=== PATIENT | male | born 1955 | race African-American/Black ===

== ENCOUNTER 2020-12-10 11:38 | Emergency (ER) | payer MEDICARE, OTHER ==
[~2020-12-10] VITALS: Ht 180.3 cm; Wt 68.0 kg
[~2020-12-10 11:38] MED LIST: AMLO10TA80 MT; FINA5TAB11 MT; FLUT1DIS3 IH; NAPR-681 MT; TERA10CA4 MT
[2020-12-10 11:47] VITALS: BP 148/131
[2020-12-10 14:35] LABS: BASOPHILS % 0.7 % (0.0-2.0); EOSINOPHILS % 2.4 % (0.0-5.0); HEMOGLOBIN. 9.6 g/dL (14.0-18.0); LYMPHOCYTES % 19.6 % (20.0-50.0); MEAN CORPUSCULAR HEMOGLOBIN 27.8 pg (28.0-32.0); MEAN CORPUSCULAR VOLUME 83.9 fL (80.0-94.0); MEAN PLATELET VOLUME 6.4 fl (7.4-10.4); MONOCYTES % 11.4 % (2.0-8.0); NEUTROPHILS % 65.9 % (40.0-76.0); PLATELET 352 x1000/uL (130-400); RED BLOOD CELL COUNT 3.45 mill/uL (4.7-6.1); RED CELL DISTRIBUTION WIDTH 16.2 % (11.6-14.6)
[2020-12-10 14:40] LABS: CHLORIDE 106 mEq/L (98-107)
[2020-12-10] MEDS ORDERED: FUROSEMIDE 20MG TABLET PO NR (15:30)
== END 2020-12-10 15:57 | disposition home or self-care (01) ==
LOC: ER 11:38
DX: M79.89 Other specified soft tissue disorders (principal); J45.909 Unspecified asthma, uncomplicated; J44.9 Chronic obstructive pulmonary disease, unspecified
CPT/HCPCS: 36415; 80053; 83880; 85025; 99283